=== PATIENT | female | born 1990 | race Caucasian/White ===

== ENCOUNTER 2020-03-07 15:37 | Emergency (ER) | payer BC ==
[~2020-03-07] VITALS: Ht 154.9 cm; Wt 70.3 kg
--- NOTE | 2020-03-07 16:00 | NUR ---
PT BIBRA FROM THE STREETS TO ED BED 15 WITH INITIAL COMPLAINTS OF BILATERAL ANKLE PAIN FROM "WALKING A LOT." DENIES ANY RECENT INJURY. PT UPON INITIAL ASSESSMENT C/O HEARING VOICES AND SUICIDAL IDEATION. PT GOWNED. PLACED ON MONITOR. SITTER AT BEDSIDE AWAITING MD GIBBS.
--- NOTE | 2020-03-07 16:18 | NUR ---
DR FOLEY AT BEDSIDE FOR EVAL.
--- NOTE | 2020-03-07 16:40 | NUR ---
REGIONAL TRAINING MANAGER AT BEDSIDE FOR BLOOD DRAW.
[2020-03-07 16:47] LABS: BASOPHILS # (AUTO) 0.1 /CMM (0.0-0.2); BASOPHILS % (AUTO) 0.9 % (0.0-2.0); EOSINOPHILS % (AUTO) 1.2 % (0.0-6.0); HEMATOCRIT 42 % (33-45); LYMPHOCYTES % (AUTO) 19.4 % (20.0-44.0); MEAN CORPUSCULAR HGB CONC 34 g/dl (31.0-36.0); MEAN CORPUSCULAR VOLUME 89 fL (82-100); MONOCYTES # (AUTO) 0.8 /CMM (0.1-1.30); MONOCYTES % (AUTO) 7.9 % (2.0-12.0); NEUTROPHILS # (AUTO) 7.1 /CMM (1.8-8.9); NEUTROPHILS % (AUTO) 70.6 % (43.0-81.0); PLATELET COUNT (AUTO) 286 /CMM (150-450); RED BLOOD CELL COUNT(AUTO) 4.67 MIL/uL (4.0-5.2); WHITE BLOOD COUNT (AUTO) 10.1 K/uL (4.3-11.0)
[2020-03-07 16:53] LABS: CALCIUM, SERUM 8.9 mg/dL (8.5-10.1); CARBON DIOXIDE 24 mmol/L (21-32); CHLORIDE 97 mmol/L (98-107); CREATININE 0.9 mg/dL (0.6-1.3); GLUCOSE 84 mg/dL (74-106); POTASSIUM 3.9 mmol/L (3.5-5.1); SODIUM SERUM 133 mmol/L (136-145); UREA NITROGEN, BLOOD 22 mg/dL (7-18)
[2020-03-07 16:59] LABS: ALANINE AMINOTRANSFERASE 25 U/L (12-78); ALBUMIN 4.1 g/dL (3.4-5.0); ALCOHOL, BLOOD < 3 mg/dL (0-0); ALKALINE PHOSPHATASE 96 U/L (46-116); ASPARTATE AMINOTRANSFERASE 38 U/L (15-37); BILIRUBIN,DIRECT 0.2 mg/dL (0.0-0.2); BILIRUBIN,TOTAL 0.9 mg/dL (0.2-1.0)
[2020-03-07 17:02] LABS: ACETAMINOPHEN < 2 ug/ml (10-30)
[2020-03-07 17:08] LABS: BILIRUBIN,URINE MODERATE (NEGATIVE); BLOOD, URINE Large Ery/uL (NEGATIVE); COLOR,URINE DARK YELLOW (YELLOW); LEUKOCYTE ESTERASE ,URINE Negative (NEGATIVE); NITRITE, URINE Negative (NEGATIVE); PH,URINE 5.5 (5.0-8.0); PROTEIN,URINE 30 mg/dl (NEGATIVE); UGLUCOSE Negative (NEGATIVE); UROBILINOGEN,URINE 0.2 EU/dL (0.2)
[2020-03-07 17:20] LABS: BACTERIA,URINE Few /HPF (None Seen); MUCUS,URINE Moderate /LPF (None Seen); RBC,URINE 21-50 /HPF (0-2); SQUAMOUS EPITHELIAL CELL,UR Moderate /HPF (None Seen)
--- NOTE | 2020-03-07 18:44 | NUR ---
FAXED FACESHEET AND CLINICALS TO [facility]
--- NOTE | 2020-03-07 21:27 | NUR ---
PT ACCEPTED AT [facility] INTAKE ACCEPTING MD MIJARES PT WILL GOT O UNIT 2 PHONE NUMBER FOR REPORT
--- NOTE | 2020-03-07 21:36 | NUR ---
TRANSPORT CALLED ([facility]) ETA [phone].
--- NOTE | 2020-03-07 22:16 | NUR ---
REPORT CALLED TO [facility]. AWAITING TRANSPORT.
--- NOTE | 2020-03-07 23:06 | NUR ---
TRANSPORT AT BEDSIDE REPORT GIVEN TO EMT TRANSPORT.
[2020-03-07 23:09] VITALS: BP 127/67
== END 2020-03-07 23:10 ==
LOC: ER 15:41
DX: R45.851 Suicidal ideations (principal); F20.9 Schizophrenia, unspecified; F15.10 Other stimulant abuse, uncomplicated; Z20.828 Contact with and (suspected) exposure to other viral communicable diseases; R03.0 Elevated blood-pressure reading, without diagnosis of hypertension; M25.572 Pain in left ankle and joints of left foot; M25.571 Pain in right ankle and joints of right foot
CPT/HCPCS: 36415; 73610 ×2; 80048; 80076; 80299; 80307; 80320; 81001; 84703; 85025; 87426; 99285; C9803; G0480